=== PATIENT | female | born 1940 | race Caucasian/White ===

== ENCOUNTER 2018-03-19 13:24 | Emergency (ER) | payer MEDICARE ==
--- NOTE | 2018-03-19 14:01 | ER Document Report ---
ED Medical Screen (RME) - General Chief Complaint: Shortness Of Breath Stated Complaint: SHORT OF BREATH/TIRED Time Seen by Provider: 03/19/18 13:52 Notes: RAPID MEDICAL EVALUATION DISCLOSURE I have seen this patient as part of a Rapid Medical Evaluation and, if applicable, placed any initially appropriate orders. The patient will be seen and fully evaluated, including a full history and physical exam, by a provider ( in Main ED or Fast Track) when a room becomes available. 77-year-old female H GIB here with complaints of exertional shortness of breath over the past few days. She also noted some bright red blood in the stools 2 days ago but not since then. She reports that every time she has this exertional shortness of breath, she always worries that her blood counts have gotten low. She is visiting the area and reports that she gets her blood checked once per week at [facility]. In the past she has required blood transfusions. Also reports that her blood counts are low due to "bleeding in my stomach". She has not had any chest pain lightheadedness. EXAM CTAB RRR No abdominal TTP TRAVEL OUTSIDE OF THE [place] IN LAST 30 DAYS: No - Related Data Allergies/Adverse Reactions: ferumoxytol [From Feraheme] Allergy (Verified 03/19/18 13:26) Penicillins Allergy (Verified 03/19/18 13:26) Past Medical History - Social History Chew tobacco use (# tins/day): No Frequency of alcohol use: None Drug Abuse: None Renal/ Medical History: Denies: Hx Peritoneal Dialysis Physical Exam - Vital signs Vitals: Temp Pulse Resp BP Pulse Ox 97.9 F 86 16 139/61 H 97 03/19/18 13:40 03/19/18 13:40 03/19/18 13:40 03/19/18 13:40 03/19/18 13:40 Course - Vital Signs Vital signs: Temp Pulse Resp BP Pulse Ox 97.9 F 86 16 139/61 H 97 03/19/18 13:40 03/19/18 13:40 03/19/18 13:40 03/19/18 13:40 03/19/18 13:40
--- NOTE | 2018-03-19 14:59 | RADIOLOGY REPORT (SQ) ---
EXAM DESCRIPTION: CHEST 2 VIEWS COMPLETED DATE/TIME: 03/19/2018 2:39 pm REASON FOR STUDY: SOB COMPARISON: None. EXAM PARAMETERS: NUMBER OF VIEWS: two views TECHNIQUE: Digital Frontal and Lateral radiographic views of the chest acquired. RADIATION DOSE: NA LIMITATIONS: none FINDINGS: LUNGS AND PLEURA: Right middle and lower lobe collapse and consolidation. Trace right ple ural effusion. Left lung well inflated and clear. No left pleural effusion. No right or left pneumothorax. MEDIASTINUM AND HILAR STRUCTURES: No masses or contour abnormalities. HEART AND VASCULAR STRUCTURES: Mild to moderate cardiomegaly, aortic valve replacement with cage BONES: Defect right posterior 4th rib, likely from old right thoracotomy. HARDWARE: Aortic valve replacement OTHER: No other significant finding. IMPRESSION: Right middle and lower lobe airspace disease atelectasis versus pneumonia. Trace right pleural effusion. 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
[2018-03-19 15:09] LABS: HEMATOCRIT 24.8 % (36.0-47.0); HEMOGLOBIN 8.3 g/dL (12.0-15.5); MEAN CORPUSCULAR HEMOGLOBIN 37.9 pg (27.0-33.4); MEAN CORPUSCULAR HGB CONC 33.6 g/dL (32.0-36.0); RED BLOOD COUNT 2.19 10^6/uL (3.72-5.28); WHITE BLOOD COUNT 4.9 10^3/uL (4.0-10.5)
[2018-03-19 15:26] LABS: ANION GAP 11 (5-19); BLOOD UREA NITROGEN 47 mg/dL (7-20); CALCIUM 8.6 mg/dL (8.4-10.2); CARBON DIOXIDE 26 mmol/L (22-30); CHLORIDE 106 mmol/L (98-107); GLUCOSE 91 mg/dL (75-110); POTASSIUM 3.6 mmol/L (3.6-5.0); SODIUM 142.5 mmol/L (137-145)
[2018-03-19 15:28] LABS: MEAN CORPUSCULAR VOLUME 113 fl (80-97)
[2018-03-19 15:29] LABS: PLATELET COUNT 44 10^3/uL (150-450)
[2018-03-19 15:32] LABS: ABSOLUTE LYMPHOCYTES# (MANUAL) 1.5 10^3/uL (0.5-4.7); ABSOLUTE MONOCYTES # (MANUAL) 0.4 10^3/uL (0.1-1.4); ABSOLUTE NEUTROPHILS# (MANUAL) 2.9 10^3/uL (1.7-8.2); ANISOCYTOSIS 3+; BASOPHILS % (MANUAL) 0 % (0-2); EOSINOPHILS % (MANUAL) 2 % (0-6); HYPOCHROMASIA SLIGHT; LYMPHOCYTES % (MANUAL) 30 % (13-45); METAMYELOCYTES % (MANUAL) 1 % (0); MONOCYTES % (MANUAL) 9 % (3-13); OVALOCYTES 2+; PLATELET COMMENT DECREASED; POIKILOCYTOSIS 2+; POLYCHROMASIA 2+; SEGMENTED NEUTROPHILS % (MAN) 58 % (42-78); TOTAL CELLS COUNTED 100; TOXIC GRANULATION 1+; TOXIC VACUOLATION PRESENT
--- NOTE | 2018-03-19 15:52 | ER Document Report ---
ED General - General Chief Complaint: Shortness Of Breath Stated Complaint: SHORT OF BREATH/TIRED Time Seen by Provider: 03/19/18 13:52 Mode of Arrival: Ambulatory Information source: Patient Notes: 77-year-old female presents with complaints of exertional dyspnea. Patient notes that she has a history of chronic kidney disease and normally her hemoglobin is between 7 and 8 with a platelet count of around 45 and creatinine at 2.5. Patient presents with lab work from previous visits with similar results. Patient is concerned about her hemoglobin and platelet level and wishes to have these checked since she is visiting here TRAVEL OUTSIDE OF THE [place] IN LAST 30 DAYS: No - HPI Onset: Other Onset/Duration: Intermittent Quality of pain: No pain Severity: Mild Pain Level: Denies Associated symptoms: Shortness of breath, Weakness Exacerbated by: Walking Relieved by: Denies Similar symptoms previously: Yes Recently seen / treated by doctor: Yes - Related Data Allergies/Adverse Reactions: ferumoxytol [From Feraheme] Allergy (Verified 03/19/18 13:26) Penicillins Allergy (Verified 03/19/18 13:26) Past Medical History - Social History Smoking Status: Never Smoker Cigarette use (# per day): No Chew tobacco use (# tins/day): No Smoking Education Provided: No Frequency of alcohol use: None Drug Abuse: None Family History: Reviewed & Not Pertinent Patient has suicidal ideation: No Patient has homicidal ideation: No Renal/ Medical History: Denies: Hx Peritoneal Dialysis Review of Systems - Review of Systems Notes: REVIEW OF SYSTEMS: CONSTITUTIONAL : Denies fever, chills, or sweats. Denies recent illness. EENT: Denies eye, ear, throat, or mouth pain or symptoms. Denies nasal or sinus congestion or discharge. Denies throat, tongue, or mouth swelling or difficulty swallowing. CARDIOVASCULAR: Denies chest pain. Denies palpitations or racing or irregular heart beat. Denies ankle edema. RESPIRATORY: Admits to exertional dyspnea. GASTROINTESTINAL: 3 episodes of diarrhea 2 had streaks of red blood GENITOURINARY: Denies difficulty urinating, painful urination, burning, frequency, blood in urine, or discharge. FEMALE GENITOURINARY: Denies vaginal bleeding, heavy or abnormal periods, irregular periods. Denies vaginal discharge or odor. MUSCULOSKELETAL: Denies back or neck pain or stiffness. Denies joint pain or swelling. SKIN: Denies rash, lesions or sores. HEMATOLOGIC : Denies easy bruising or bleeding. LYMPHATIC: Denies swollen, enlarged glands. NEUROLOGICAL: Denies confusion or altered mental status. Denies passing out or loss of consciousness. Denies dizziness or lightheadedness. Denies headache. Denies weakness or paralysis or loss of use of either side. Denies problems with gait or speech. Denies sensory loss, numbness, or tingling. Denies seizures. PSYCHIATRIC: Denies anxiety or stress. Denies depression, suicidal ideation, or homicidal ideation. ALL OTHER SYSTEMS REVIEWED AND NEGATIVE. PHYSICAL EXAMINATION: GENERAL: Well-appearing, well-nourished and in no acute distress. HEAD: Atraumatic, normocephalic. EYES: Pupils equal round and reactive to light, extraocular movements intact, conjunctiva are normal. ENT: Nares patent, oropharynx clear without exudates. Moist mucous membranes. NECK: Normal range of motion, supple without lymphadenopathy LUNGS: Breath sounds clear to auscultation bilaterally and equal. No wheezes rales or rhonchi. HEART: Regular rate and rhythm without murmurs ABDOMEN: Soft, nontender, nondistended abdomen. No guarding, no rebound. No masses appreciated. Female : deferred Musculoskeletal: Normal range of motion, no pitting or edema. No cyanosis. NEUROLOGICAL: Cranial nerves grossly intact. Normal speech, normal gait. Normal sensory, motor exams PSYCH: Normal mood, normal affect. SKIN: Warm, Dry, normal turgor, no rashes or lesions noted. Dictation was performed using [employer] voice recognition software Physical Exam - Vital signs Vitals: Temp Pulse Resp BP Pulse Ox 97.9 F 86 16 139/61 H 97 03/19/18 13:40 03/19/18 13:40 03/19/18 13:40 03/19/18 13:40 03/19/18 13:40 Course - Re-evaluation Re-evalutation: 03/19/18 15:51 Chest x-ray was performed there is questionable pneumonia, patient has no fevers no white count no cough, satting 99-100% on RA there fore i have low suspicion regarding this . pt blood work is at her baseline, she normally gets transfused at 7. pt will be dc home with close follow up After performing a Medical Screening Examination, I estimate there is LOW risk for INTRACRANIAL HEMORRHAGE, ISCHEMIC CVA, MALIGNANT DYSRHYTHMIA, ACUTE CORONARY SYNDROME, MENINGITIS, PULMONARY EMBOLISM, or SEPSIS thus I consider the discharge disposition reasonable. I have reevaluated this patient multiple times and no significant life threatening changes are noted. The patient and I have discussed the diagnosis and risks, and we agree with discharging home with close follow-up with the understanding that symptoms and presentations can change. We also discussed returning to the Emergency Department immediately if new or worsening symptoms occur. We have discussed the symptoms which are most concerning (e.g., changing or worsening pain, weakness, vomiting, fever) that necessitate immediate return. - Vital Signs Vital signs: Temp Pulse Resp BP Pulse Ox 97.9 F 86 16 139/61 H 97 03/19/18 13:40 03/19/18 13:40 03/19/18 13:40 03/19/18 13:40 03/19/18 13:40 - Laboratory Result Diagrams: 03/19/18 14:50 03/19/18 14:50 Laboratory results interpreted by me: 03/19/18 03/19/18 14:50 14:50 RBC 2.19 L Hgb 8.3 L Hct 24.8 L MCV 113 H MCH 37.9 H RDW 24.0 H Plt Count 44 L Metamyelocytes % 1 H BUN 47 H Creatinine 1.93 H Est GFR ( Amer) 30 L Est GFR (Non-Af Amer) 25 L - Diagnostic Test Radiology reviewed: Reports reviewed Discharge - Discharge Clinical Impression: CKD (chronic kidney disease) Qualifiers: Chronic kidney disease stage: stage 4 (severe) Qualified Code(s): N18.4 - Chronic kidney disease, stage 4 (severe) Condition: Stable Disposition: HOME, SELF-CARE Instructions: Pneumonia ([facility]) Additional Instructions: Follow up with your physician tomorrow for further care or return to the ED IMMEDIATELY if symptoms worsen or new concerns occur. If you cannot afford to follow up with your primary care physician a list of low cost clinics have been provided at the end of your discharge papers as well. Prescriptions: Azithromycin 250 mg PO ASDIR PRN #6 tablet PRN Reason:
[2018-03-19 15:59] VITALS: BP 136/69
--- NOTE | 2018-03-19 19:33 | EKG REPORT ---
SEVERITY:- ABNORMAL ECG - SINUS RHYTHM LEFT BUNDLE BRANCH BLOCK : Confirmed by: Kobe Soto MD 19-Mar-2018 19:32:16
[2018-03-22 14:54] LABS: PATH REVIEW PATHOLOGIST REVIEWED
== END 2018-03-19 16:05 | disposition home or self-care (01) ==
LOC: ER 13:24
DX: N18.4 Chronic kidney disease, stage 4 (severe) (principal); R06.09 Other forms of dyspnea; R06.02 Shortness of breath; R53.1 Weakness; R19.7 Diarrhea, unspecified; K92.1 Melena; Z88.8 Allergy status to other drugs, medicaments and biological substances; Z88.0 Allergy status to penicillin
CPT/HCPCS: 36415; 71046; 80048; 84484; 85025; 93005; 93010; 99285